=== PATIENT | male | born 1955 | race Caucasian/White ===

== ENCOUNTER 2019-09-26 21:55 | Emergency (ER) | payer MEDICARE, BC ==
[2019-09-26 22:01] VITALS: BP 111/74; PULSE 68; RESP 18; TEMP 97.6
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
--- NOTE | 2019-09-26 22:30 | XR ---
EXAMINATION TYPE: XR chest 2V DATE OF EXAM: 09/26/2019 COMPARISON: NONE HISTORY: Cough TECHNIQUE: 2 views FINDINGS: There is no heart failure nor confluent pneumonic infiltrate. Costophrenic angles are clear . The bony thorax is intact. There is some spurring in the thoracic spine. IMPRESSION: No active cardiopulmonary disease.
== END 2019-09-26 22:55 | disposition home or self-care (01) ==
LOC: EC 21:55
DX: J40 Bronchitis, not specified as acute or chronic (principal); G82.50 Quadriplegia, unspecified; E11.9 Type 2 diabetes mellitus without complications; Z79.84 Long term (current) use of oral hypoglycemic drugs; Z79.899 Other long term (current) drug therapy; Z88.1 Allergy status to other antibiotic agents; Z93.3 Colostomy status; Z86.73 Personal history of transient ischemic attack (TIA), and cerebral infarction without residual deficits; Z87.891 Personal history of nicotine dependence; Z87.828 Personal history of other (healed) physical injury and trauma
CPT/HCPCS: 71046; 99284

== ENCOUNTER 2019-09-29 03:37 | Inpatient (IN) | payer MEDICARE, BC ==
[2019-09-29] MEDS ORDERED: ALBUTEROL NEBULIZED 2.5 MG/3 ML INHALATION STA (03:53)
[2019-09-29] MEDS ORDERED: methylPREDNISolone SOD SUCCI 125 MG/2 ML VIAL IV STA (03:53)
[2019-09-29] MEDS ORDERED: SODIUM CHLORIDE 0.9% 500 ML 500 ML IV STA (03:53)
[2019-09-29] MEDS ORDERED: IPRATROPIUM 0.5 MG/2.5 ML NEBU INHALATION STA (03:53)
[2019-09-29 04:30] LABS: ALT 17 U/L (4-49); AST 28 U/L (17-59); African American GFR (CKD) >90 (>60 ml/min/1.73 sqM); Alkaline Phosphatase 44 U/L (38-126); Anion Gap 9 mmol/L; Blood Urea Nitrogen 13 mg/dL (9-20); Calcium 9.3 mg/dL (8.4-10.2); Carbon Dioxide 24 mmol/L (22-30); Chloride 103 mmol/L (98-107); Glucose 140 mg/dL (74-99); Magnesium 1.9 mg/dL (1.6-2.3); Non-African American GFR(CKD) >90 (>60 ml/min/1.73 sqM); Potassium 4.3 mmol/L (3.5-5.1); Sodium 136 mmol/L (137-145)
[2019-09-29 04:35] LABS: INR 0.9 (<1.2); Partial Thromboplastin Time 24.5 sec (22.0-30.0); Prothrombin Time 9.6 sec (9.0-12.0)
[2019-09-29 04:39] LABS: Basophils # (A) 0.3 k/uL (0-0.2); Basophils % (A) 2 %; Eosinophils # (A) 0.2 k/uL (0-0.7); Eosinophils % (A) 1 %; HCT 36.8 % (39.0-53.0); HGB 12.1 gm/dL (13.0-17.5); Lymphocytes # (A) 1.2 k/uL (1.0-4.8); Lymphocytes % (A) 8 %; MCH 29.5 pg (25.0-35.0); MCHC 32.9 g/dL (31.0-37.0); MCV 89.8 fL (80.0-100.0); Mean Platelet Volume 7.6; Monocytes # (A) 1.1 k/uL (0-1.0); Monocytes % (A) 7 %; Neutrophils # (A) 12.1 k/uL (1.3-7.7); Neutrophils % (A) 80 %; Platelet Count 145 k/uL (150-450); RDW 13.7 % (11.5-15.5); WBC 15.1 k/uL (3.8-10.6)
[2019-09-29] MEDS ORDERED: ACETAMINOPHEN TAB 500 MG TAB PO STA (05:18)
[2019-09-29] MEDS ORDERED: SODIUM CHLORIDE 0.9% 500 ML 500 ML IV ONE (05:18)
[2019-09-29] MEDS ORDERED: AZITHROMYCIN 500 MG in SODIUM CHLORIDE 0.9% 250 ML IVPB STA (05:19)
[2019-09-29] MEDS ORDERED: IPRATROPIUM-ALBUTEROL 3 ML NEB INHALATION PRN (05:26)
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
[2019-09-29] MEDS ORDERED: methylPREDNISolone SOD SUCCI 125 MG/2 ML VIAL IV SCH (06:00)
--- NOTE | 2019-09-29 06:06 | XR ---
EXAM: XR Chest, 2 Views CLINICAL HISTORY: Reason: difficulty breathing TECHNIQUE: Frontal and lateral views of the chest. COMPARISON: 09/26/19 FINDINGS: Lungs: Probable small left pleural effusion with left basilar atelectasis or early consolidation. No pulmonary edema. No pneumothorax. Heart: Heart size normal. Mediastinum: No mediastinal widening or shift. Bones/joints: No acute osseous abnormality. IMPRESSION: Small left pleural effusion with atelectasis or early consolidation in the left lung base.
[2019-09-29] MEDS: IPRATROPIUM-ALBUTEROL 3 ML NEB INHALATION SCH ×5 (07:45→19:40)
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
[2019-09-29 12:51] LABS: Appearance,Urine Clear (Clear); Bilirubin,Urine Negative (Negative); Blood,Urine Negative (Negative); Color,Urine Yellow; Glucose,Urine (UA) 4+ (Negative); Ketones,Urine 1+ (Negative); Leukocyte Esterase,Urine Negative (Negative); Nitrite,Urine Negative (Negative); PH, Urine 5.5 (5.0-8.0); Protein,Urine Trace (Negative); Specific Gravity,Urine 1.027 (1.001-1.035)
[2019-09-29] MEDS: metFORMIN 500 MG TAB PO SCH (17:18)
[2019-09-29 19:12] LABS: Hemoglobin A1C 5.6 % (4.0-6.0)
[2019-09-29] MEDS: MULTIVITAMINS, THERA 1 EACH TAB PO SCH (21:55)
[2019-09-29] MEDS: ATORVASTATIN 10 MG TAB PO SCH (21:55)
[2019-09-29] MEDS: SENNOSIDES 8.6 MG TAB PO SCH (21:55)
[2019-09-29] MEDS: POLYETHYLENE GLYCOL 3350 17 GM POWD.PACK PO SCH (21:55)
[2019-09-29] MEDS: guaiFENesin 600 MG TABLET.ER PO SCH (21:55)
[2019-09-29] MEDS: BACLOFEN 10 MG TAB PO SCH (21:55)
[2019-09-30 00:03] VITALS: RESP 16
[2019-09-30] MEDS: AZITHROMYCIN 500 MG in SODIUM CHLORIDE 0.9% 250 ML IVPB SCH (06:05)
[2019-09-30] MEDS: guaiFENesin 600 MG TABLET.ER PO SCH ×2 (08:13→21:52)
[2019-09-30] MEDS: BACLOFEN 10 MG TAB PO SCH ×2 (08:13→21:52)
[2019-09-30] MEDS: metFORMIN 500 MG TAB PO SCH ×2 (08:14→17:23)
[2019-09-30] MEDS: IPRATROPIUM-ALBUTEROL 3 ML NEB INHALATION SCH ×4 (08:31→20:09)
[2019-09-30] MEDS ORDERED: NON FORMULARY DRUG (Ubidecarenone [Co Q-10] 200 MG) PO SCH (09:00)
--- NOTE | 2019-09-30 17:17 | P.PN ---
Subjective Progress Note Date: 09/30/19 Principal diagnosis: Community acquired pneumonia Patient was seen and examined. No acute events overnight. Patient reports considerable improvement in his breathing since admission. States that he is 70% back to baseline. He denies any chest pain or palpitations. No nausea or vomiting. No fever or chills. His is at bedside. Objective - Vital Signs Vital signs: Vital Signs Temp 98.4 F 09/30/19 14:42 Pulse 94 09/30/19 15:38 Resp 16 09/30/19 15:34 BP 136/81 09/30/19 14:42 Pulse Ox 95 09/30/19 14:42 Intake & Output 09/29/19 09/30/19 09/30/19 18:59 06:59 18:59 Intake Total 430 540 Output Total 300 1000 Balance 130 -460 Weight 98.883 kg Intake: Intake, IV Titration 250 Amount Azithromycin 500 mg In 250 Sodium Chloride 0.9% 250 ml @ 250 mls/hr IVPB ONCE STA Rx#:[id number] Oral 180 540 Output: Urine 300 1000 Other: Voiding Method Self-Catheterization Self-Catheterization Self-Catheterization # Voids 1 1 - Exam General: [non toxic], [no distress], [appears at stated age] Derm: [warm], [dry] Head: [atraumatic], [normocephalic], [symmetric] Eyes: [EOMI], [no lid lag], [anicteric sclera] Mouth: [no lip lesion], [mucus membranes moist] Cardiovascular: [S1S2 reg], [no murmur], [positive posterior tibial pulse bilateral], Lungs: [Decreased breath sounds bilateral], [no rhonchi, no rales] , [no accessory muscle use] Abdominal: [soft], [ nontender to palpation], [no guarding], [no appreciable organomegaly] Ext: [Muscular atrophy in the lower extremities], [no edema], [contractures of the upper extremities at the wrist] Neuro: [no focal neuro deficits] Psych: [Alert], [oriented], [appropriate affect] - Labs CBC & Chem 7: 09/29/19 04:10 09/29/19 04:10 Labs: Microbiology - Last 24 Hours (Table) 09/29/19 04:05 Blood Culture - Preliminary Blood No Growth after 24 hours Assessment and Plan Assessment: Sepsis related to community acquired pneumonia Community acquired pneumonia Traumatic quadriplegia Neurogenic bladder Patient initially met sepsis criteria. Leukocytosis of 15.1. Heart rate greater than 100. Chest x-ray with concerns of pneumonia. Plans: Continue ceft riaxone and azithromycin. Follow blood cultures. Continue Robitussin. Supplemental O2 to maintain O2 saturation greater than 92%. DuoNeb as needed for shortness of breath and wheezing. Repeat chest x-ray tomorrow morning. Chest physiotherapy. Plans: Management as above. Plans: DVT prophylaxis. SCD boots. Baclofen for muscle spasms. Plans: Straight cath as needed. [Patient admitted for pneumonia. Has shown improvement. We'll continue treatment for 1 more day. Anticipate likely DC tomorrow.]
[2019-09-30] MEDS: POLYETHYLENE GLYCOL 3350 17 GM POWD.PACK PO SCH (21:52)
[2019-09-30] MEDS: MULTIVITAMINS, THERA 1 EACH TAB PO SCH (21:52)
[2019-09-30] MEDS: SENNOSIDES 8.6 MG TAB PO SCH (21:52)
[2019-09-30] MEDS: ATORVASTATIN 10 MG TAB PO SCH (21:52)
[2019-10-01] MEDS: HEPARIN SODIUM,PORCINE 5,000 UNIT/ML 1 ML VIAL SQ SCH ×2 (00:14→07:49)
[2019-10-01] MEDS: AZITHROMYCIN 500 MG in SODIUM CHLORIDE 0.9% 250 ML IVPB SCH (05:32)
[2019-10-01] MEDS: IPRATROPIUM-ALBUTEROL 3 ML NEB INHALATION SCH ×2 (06:58→10:46)
[2019-10-01 07:03] VITALS: BP 142/84; TEMP 99
[2019-10-01 07:32] LABS: HCT 33.4 % (39.0-53.0); HGB 11.4 gm/dL (13.0-17.5); MCH 30.4 pg (25.0-35.0); MCHC 34.1 g/dL (31.0-37.0); MCV 89.2 fL (80.0-100.0); Platelet Count 194 k/uL (150-450); RBC 3.74 m/uL (4.30-5.90); RDW 13.3 % (11.5-15.5); WBC 10.4 k/uL (3.8-10.6)
[2019-10-01] MEDS: guaiFENesin 600 MG TABLET.ER PO SCH (07:49)
[2019-10-01] MEDS: metFORMIN 500 MG TAB PO SCH (07:49)
[2019-10-01] MEDS: BACLOFEN 10 MG TAB PO SCH (07:49)
--- NOTE | 2019-10-01 08:22 | XR ---
EXAMINATION TYPE: XR chest 1V portable DATE OF EXAM: 10/01/2019 HISTORY: PNA. REFERENCE: Previous study dated 09/29/2019. FINDINGS: There has been a previous posterior fusion of the lower cervical spine. The heart is enlarged. There is left basilar airspace disease and associated effusion. The right lung is clear. There is some thickening or fluid in the right minor fissure. IMPRESSION: 1. CARDIOMEGALY. 2. LEFT BASILAR AIRSPACE DISEASE WITH A CONCOMITANT EFFUSION. 3. POSTSURGICAL CHANGE.
--- NOTE | 2019-10-01 09:22 | P.DS ---
Providers Date of admission: 09/29/19 05:27 Expected date of discharge: 10/01/19 Attending physician: Jennifer Mott MD Primary care physician: Nathan Card MD Hospital Course: 64-year-old male with PMH of prediabetes, dyslipidemia, neurogenic bladder, quadriplegia for the last 14 years after work-related accident paralyzed from C5 down currently wheelchair-bound who initially presented to the ED for shortness of breath. He had failed outpatient treatment with azithromycin. In the ED he underwent comprehensive evaluation. He was noted to have a leukocytosis of 15.6 with chest x-ray confirming left lower lobe pneumonia and was admitted for admission.patient initially met sepsis criteria with leukocytosis, heart rate greater than 100 and positive source of infection. He was started on ceftriaxone and azithromycin. Blood cultures were performed and was negative at 48 hours. He was given Robitussin and supplemental oxygen to maintain O2 saturation greater than 92%. He was given DuoNeb as needed for shortness of breath and wheezing. Repeat chest x-ray at the time of discharge showed left basilar airspace disease with a concomitant effusion. Patient was seen and examined prior to discharge. No acute events overnight. Patient reports considerable improvement in his breathing. States that he is at baseline. He denies any chest pain, shortness of breath or palpitations. No nausea or vomiting. No fever or chills. General: [non toxic], [no distress], [appears at stated age] Derm: [warm], [dry] Head: [atraumatic], [normocephalic], [symmetric] Eyes: [EOMI], [no lid lag], [anicteric sclera] Mouth: [no lip lesion], [mucus membranes moist] Cardiovascular: [S1S2 reg], [no murmur], [positive DP pulse bilateral], Lungs: [Decreased breath sounds bilateral], [no rhonchi, no rales] , [no acc essory muscle use] Abdominal: [soft], [ nontender to palpation], [no guarding], [no appreciable organomegaly] Ext: [Muscular atrophy in the lower extremities], [no edema], [contractures of the upper extremities at the wrist] Neuro: [no focal neuro deficits] Psych: [Alert], [oriented], [appropriate affect] Sepsis related to community acquired pneumonia Community acquired pneumonia Traumatic quadriplegia Neurogenic bladder Patient initially met sepsis criteria. Leukocytosis of 15.1. Heart rate greater than 100. Chest x-ray with concerns of pneumonia. Plans: Continue ceftriaxone and azithromycin. Follow blood cultures. Continue Robitussin. Supplemental O2 to maintain O2 saturation greater than 92%. DuoNeb as needed for shortness of breath and wheezing. Chest physiotherapy. Plans: Management as above. Plans: DVT prophylaxis. SCD boots. Baclofen for muscle spasms. Plans: Straight cath as needed. [Patient admitted for pneumonia. Has shown improvement. Plans for DC home today. Repeat chest x-ray in 1 week. 1 week of antibiotics.] Pertinent Studies: chest x-ray Patient Condition at Discharge: Stable Plan - Discharge Summary Discharge Rx Participant: No New Discharge Prescriptions: New Levofloxacin [Levaquin] 750 mg PO DAILY 5 Days #5 tab RX: guaiFENesin [Mucinex] 1,200 mg PO Q12HR #30 tablet.er Continue RX: Multivitamin [Men's Multi-Vitamin] 1 tab PO BID RX: Polyethylene Glycol 3350 [Miralax] 17 gm PO HS RX: Sennosides [Senokot] 25.8 tab PO HS RX: metFORMIN HCL [Glucophage] 500 mg PO AC-BRKFST RX: Baclofen [Lioresal] 10 mg PO BID RX: Ubidecarenone [Co Q-10] 200 mg PO QAM RX: Krill/Om-3/Dha/Epa/Phospho/Ast [Peyton-3 Krill Oil 300 mg Sfgl] 1 cap PO QAM RX: Simvastatin 10 mg PO HS RX: metFORMIN HCL 1,000 mg PO AC-SUPPER Discontinued Garlicare 400mg 1 tab PO HS Cranactin Cranberry Supplement 400mg 4 tab PO BID Gentamicin 40mg/Ml 1 dose MISCELLANE DIRECTED Azithromycin [Zithromax Z-pack] See Taper PO DIRECTED Discharge Medication List RX: Baclofen [Lioresal] 10 mg PO BID 02/28/14 [History] RX: Multivitamin [Men's Multi-Vitamin] 1 tab PO BID 02/28/14 [History] RX: Polyethylene Glycol 3350 [Miralax] 17 gm PO HS 02/28/14 [History] RX: Sennosides [Senokot] 25.8 tab PO HS 02/28/14 [History] RX: metFORMIN HCL [Glucophage] 500 mg PO AC-BRKFST 02/28/14 [History] RX: Krill/Om-3/Dha/Epa/Phospho/Ast [Peyton-3 Krill Oil 300 mg Sfgl] 1 cap PO QAM 09/26/19 [History] RX: Simvastatin 10 mg PO HS 09/26/19 [History] RX: Ubidecarenone [Co Q-10] 200 mg PO QAM 09/26/19 [History] RX: metFORMIN HCL 1,000 mg PO AC-SUPPER 09/29/19 [History] Levofloxacin [Levaquin] 750 mg PO DAILY 5 Days #5 tab 10/01/19 [Rx] RX: guaiFENesin [Mucinex] 1,200 mg PO Q12HR #30 tablet.er 10/01/19 [Rx] Follow up Appointment(s)/Referral(s): Nathan Card MD [Primary Care Provider] - 1-2 days Ambulatory/Diagnostic Orders: XR chest 2V [RAD.AMB] Time Frame: 1 Week, Location: None Selected Activity/Diet/Wound Care/Special Instructions: Diet: Regular Follow-up PCP within 3 days of discharge. Repeat chest x-ray in 1 week. Follow up results with PCP. Take all medications as advised. Discharge Disposition: HOME SELF-CARE
[2019-10-01 10:51] VITALS: PULSE 100
== END 2019-10-01 15:50 | disposition home or self-care (01) | DRG 871 ==
LOC: EC 03:37 → 6NMEDSUR 05:27
PROVIDERS: ADMIT Internal Medicine; ATTEND Internal Medicine
DX: A41.9 Sepsis, unspecified organism (principal); J18.9 Pneumonia, unspecified organism; G82.50 Quadriplegia, unspecified; S14.105S Unspecified injury at C5 level of cervical spinal cord, sequela; E11.9 Type 2 diabetes mellitus without complications; E78.5 Hyperlipidemia, unspecified; N31.9 Neuromuscular dysfunction of bladder, unspecified; Z79.84 Long term (current) use of oral hypoglycemic drugs; Z79.899 Other long term (current) drug therapy; Z88.1 Allergy status to other antibiotic agents; Z88.8 Allergy status to other drugs, medicaments and biological substances; Z86.73 Personal history of transient ischemic attack (TIA), and cerebral infarction without residual deficits; Z87.891 Personal history of nicotine dependence; Z93.3 Colostomy status; Z99.3 Dependence on wheelchair; Z90.49 Acquired absence of other specified parts of digestive tract; X58.XXXS Exposure to other specified factors, sequela
CPT/HCPCS: 36415; 71045; 71046; 80053; 81003; 83036; 83605; 83735; 85025; 85027; 85610; 85730; 87040; 93005; 94640; 94667; 94668; 96365; 96366; 96367; 96375; 99285

== ENCOUNTER → 2019-10-09 | Outpatient (CLI) | payer MEDICARE, BC ==
--- NOTE | 2019-10-09 16:01 | XR ---
EXAMINATION TYPE: XR chest 2V DATE OF EXAM: 10/09/2019 COMPARISON: 10/01/2019 TECHNIQUE: PA and lateral views submitted. HISTORY: Pneumonia FINDINGS: The heart is enlarged there is patchy infiltrate in the left lower lobe which is improved. No interst itial edema. Biapical pleural thickening. Atherosclerotic change of aorta. Arthropathy of the shoulde rs with diffuse osteopenia. Hypertrophic and degenerative change of the spine. Mild prominence of the upper mediastinum is stable may be positional. IMPRESSION: 1. Improving left lower lobe pneumonia.
== END | disposition home or self-care (01) ==
LOC: RADXRMAIN 15:11
PROVIDERS: ATTEND Family Medicine
DX: J18.9 Pneumonia, unspecified organism (principal)
CPT/HCPCS: 71046